=== PATIENT | male | born 1960 | race Caucasian/White ===

== ENCOUNTER → 2021-12-26 | Day surgery (SDC) | payer OTHER ==
[~2021-12-26] VITALS: Ht 175.3 cm; Wt 84.0 kg
[~2021-12-26] MED LIST: ASCORBIC ACID500 MG PO; CENTRUM SILVER1 EAC1 PO; COLESTID1 GM PO; CYCLOBENZAPRINE10 MG PO; ECHINACEA & GO1 EACH PO; FLUOXETINE HCL40 MG PO; GLUCOSAMINE-CH1 EA29 PO; LISINOPRIL-HCT1 EACH PO; PRILOSEC20 MG PO; QVAR REDIHALE10.6 G1 INH; VENLAFAXINE HCL75 M2 PO; VITAMIN D350 MC3 PO; ZETIA10 MG PO
[2021-12-26 08:27] LABS: HCT 41.2 % (42.0-52.0); HGB 13.9 g/dl (13.2-18.0); MCH 30.5 pg (25.0-31.0); MCHC 33.7 g/dL (32.0-36.0); MCV 90.4 fL (78.0-100.0); MPV 9.4 fL (6.0-9.5); RBC 4.56 M/uL (4.70-6.00); RDW 12.9 % (11.5-14.0); WBC 5.8 K/uL (4.0-10.5)
[2021-12-26 08:34] LABS: ALBUMIN 4.6 g/dL (3.4-5.0); BILIRUBIN - TOTAL 0.7 mg/dL (0.2-1.0); POTASSIUM 3.3 mmol/L (3.5-5.1); TOTAL PROTEIN 7.6 g/dL (6.4-8.2)
== END | disposition home or self-care (01) ==
LOC: FAS 07:43
PROVIDERS: Surgery
DX: Z12.11 Encounter for screening for malignant neoplasm of colon (principal); K58.9 Irritable bowel syndrome, unspecified; I10 Essential (primary) hypertension; K21.9 Gastro-esophageal reflux disease without esophagitis; Z86.010 Personal history of colon polyps; Z88.8 Allergy status to other drugs, medicaments and biological substances
CPT/HCPCS: 36415; 80053; J1610; J2250; J2704; J7120